=== PATIENT | male | born 1970 | race Caucasian/White ===

== ENCOUNTER 2018-12-04 08:26 | Outpatient (REF) | payer MEDICAID, SELFPAY ==
[2018-12-04 13:51] LABS: HGB 14.8 g/dL (13.5-17.5); Mean Corp. HGB Concentration 34.4 g/dL (32.0-36.0); Mean Corpuscular Hemoglobin 29.1 pg (27.0-33.0); Mean Corpuscular Volume 84.5 fL (80-95); Mean Platelet Volume 10.7 fL (8.0-11.0); Platelet Count 280 x1000/uL (130-400); RBC 5.09 m/cumm (4.50-6.00); RBC Distribution Width 12.8 % (11.8-14.1)
[2018-12-04 14:06] LABS: ALT 37 U/L (12-78); AST 15 U/L (15-37); Albumin 3.4 g/dL (3.4-5.0); Alkaline Phosphatase 100 U/L (46-116); Anion Gap 7.3 mmol/L (3-11); BUN 8 mg/dL (7-18); Bilirubin, Total 0.3 mg/dL (0.2-1.0); CO2 28.7 mmol/L (21.0-32.0); CREATININE 0.97 mg/dL (0.70-1.30); Chloride 105 mmol/L (98-107); Cholesterol 135 mg/dL (50-200); Glucose 92 mg/dL (70-100); HDL Cholesterol 36 mg/dL (40-60); LDL CHOLESTEROL 81 mg/dL (<100); Potassium 4.3 mmol/L (3.5-5.1); Sodium 141 mmol/L (136-145); Total Protein 6.7 g/dL (6.4-8.2); Triglyceride 78 mg/dL (30-150)
== END 2018-12-04 08:46 ==
LOC: NCHCN 08:26
PROVIDERS: PCP Family Medicine; Visit Provider Nurse Practitioner Family
DX: E78.5 Hyperlipidemia, unspecified (principal); I63.9 Cerebral infarction, unspecified; Z00.00 Encounter for general adult medical examination without abnormal findings; F10.11 Alcohol abuse, in remission
CPT/HCPCS: 80053; 80061; 83721; 85027

== ENCOUNTER 2019-12-10 09:59 | Outpatient (REF) | payer MEDICAID, SELFPAY ==
[2019-12-10 14:07] LABS: Anion Gap 9.1 mmol/L (3-11); BUN 14 mg/dL (7-18); CO2 27.9 mmol/L (21.0-32.0); CREATININE 1.01 mg/dL (0.70-1.30); Calcium 9.2 mg/dL (8.5-10.1); Calculated LDL 103 mg/dL (<100); Chloride 102 mmol/L (98-107); Cholesterol 157 mg/dL (<200); Glucose 92 mg/dL (74-106); HDL Cholesterol 38 mg/dL (40-60); Potassium 4.4 mmol/L (3.5-5.1); Sodium 139 mmol/L (136-145); Triglyceride 84 mg/dL (<150)
== END 2019-12-10 10:19 ==
LOC: NCHCN 09:59
PROVIDERS: PCP Family Medicine; Visit Provider Nurse Practitioner Family
DX: E78.5 Hyperlipidemia, unspecified (principal); Z00.00 Encounter for general adult medical examination without abnormal findings
CPT/HCPCS: 80048; 80061

== ENCOUNTER 2022-01-25 19:47 | Outpatient (REF) | payer OTHER, MEDICAID, SELFPAY ==
[2022-01-25 20:38] LABS: BUN 12 mg/dL (7-18); Calcium 9.3 mg/dL (8.5-10.1); Calculated LDL 136 mg/dL (<100); Chloride 104 mmol/L (98-107); Cholesterol 203 mg/dL (<200); Glucose 93 mg/dL (74-106); HDL Cholesterol 47 mg/dL (40-60); Potassium 4.4 mmol/L (3.5-5.1); Sodium 140 mmol/L (136-145); Triglyceride 102 mg/dL (<150)
== END 2022-01-25 19:48 | disposition home or self-care (01) ==
LOC: NCHCN 19:47
PROVIDERS: PCP Family Medicine; Visit Provider Nurse Practitioner Family
DX: I63.9 Cerebral infarction, unspecified (principal); E78.5 Hyperlipidemia, unspecified
CPT/HCPCS: 80048; 80061

== ENCOUNTER → 2022-03-15 08:48 | Outpatient (BNVA) | payer OTHER, MEDICAID, SELFPAY | PROVIDERS: PCP Family Medicine; Referring Provider Family Medicine; Visit Provider Physical Therapy Assistant | DX: K46.9 Unspecified abdominal hernia without obstruction or gangrene (principal); I63.9 Cerebral infarction, unspecified | CPT/HCPCS: 99203 ==

== ENCOUNTER 2022-04-09 02:26 | Outpatient (CLI) | payer OTHER, MEDICAID, SELFPAY ==
[2022-04-09 09:55] LABS: Source Nasal/Nares
[2022-04-09 12:07] LABS: COVID-19 PCR Negative (Negative)
== END 2022-04-09 02:27 | disposition home or self-care (01) ==
LOC: LBO 02:26
PROVIDERS: PCP Family Medicine; Visit Provider Surgery
DX: Z20.822 Contact with and (suspected) exposure to COVID-19 (principal); Z01.818 Encounter for other preprocedural examination
CPT/HCPCS: 87635; U0005

== ENCOUNTER 2022-04-10 07:22 | Day surgery (SDC) | payer OTHER, MEDICAID, SELFPAY ==
[2022-04-10] VITALS (9 sets, daily range): BP systolic 95–150; BP diastolic 68–98; PULSE 73–99; RESP 16–18; TEMP 36.4–36.8; O2SAT 94–98; BMI 24.5
--- NOTE | 2022-04-10 06:32 | ROE_ITS ---
Date of service: 04/10/22 Time of Service: 10:16 Operative Note Operative Note DATE OF PROCEDURE: 04/10/22 PRE-OP DIAGNOSIS: right inguinal hernia POST-OP DIAGNOSIS: same (and small hydrocele) PROCEDURE: Right inguinal hernia repair with mesh SURGEON: Renetta Stephenson FIBERGLASS ROVING WINDER: Meghan Reid ANESTHESIA TYPE: General LMA/ETT and Other (right TAP block) Refer to Anesthesia Record ESTIMATED BLOOD LOSS: 25 PATHOLOGY: none sent COMPLICATIONS: None Patient was transported to: PACU Patient's condition: stable Implants: PerFix Ref- [id number] and [id number] LOT- [id number] and [id number] EXP- and Indications: Patient presents with a several year history of right inguinal hernia that has started to cause him discomfort daily. He must brace this area when coughing secondary to increased discomfort. He wishes to proceed with having this surgic ally repaired. Discussed the nature of the inguinal hernia with the patient. I discussed the surgery in detail and the potential complications related to the surgery to include bleeding, hematoma, scrotal swelling, recurrence, neuorpraxia, injury to the cord structures or mesh infection and the potential complications related to anesthesia. Patient verbalized understanding. All questions were answered to patient satisfaction.? Also reviewed and discussed the lifting post-operatively to include: No lifting more than five (5) pounds for the first week following surgery. For the second week after surgery, don't lift more than ten (10) pounds.? Restrictions and when you can return to work will be discussed and decided at the follow up appointment. No sexual activity for two weeks. Reviewed COVID pre-caution's and pre-procedure testing. Patient is scheduled for COVID test. Instructions of testing location were provided. Patient verbalized understanding. P// Right inguinal hernia repair with mesh. Findings: large direct hernia and small hydrocele Procedure Description: After informed concent was obtained the patient was taken to the operating room and placed in a supine position. Monitors and SCDs were applied and a timeout was done. The patient's name, date of , procedure type, procedure site, allergies to medications, preoperative antibiotic, and DVT prophylaxis were all reviewed. Fire risk was assessed. Next anesthesia did a tap block on the right side under ultrasound guidance. Please see their separate dictation. Once anesthesia was done the abdomen was prepped and draped in a sterile surgical fashion. 0.5% Marcainel was injected into the dermis in the right lower quadrant. An incision was made with a 10 blade in the right lower quadrant. Dissection was done with cautery through the subcutaneous tissues and Nathen's fascia down to the external oblique fascia. The external ring was identified and the external oblique fascia was opened sharply through the external ring. The cut fascia was grasped with hemostats the cord structures were identified and a Whiting drain was placed around them. The ilioinguinal nerve was identified and cut. The cremasteric muscle was dissected away from the cord structures using both cautery and blunt dissection. A large indirect hernia was identified as well as a small direct hernia. A MEd plug was placed into the indirect defect and secured with 3-0 proline. A flat piece of mesh was then attached to the lacunar ligament using a 2-0 Prolene double armed suture. The mesh was secured laterally and medially with a 2-0 Prolene, with a running suture. The tails of the mesh were wrapped around the cord structures effectively cinching down the internal ring. Once the mesh was secured the tissues were irrigated with some normal saline. A small defect was still noted at the medial aspect of the lacunar ligament. A small plug was placed to avoid a recurrance and secured with 2-0 proline. No bleeding was identified. The external oblique fascia was reapproximated using 2-0 Vicryl running suture. The Nathen's fascia was reapproximated using interrupted 3-0 Vicryl. The dermis was reapproximated with a running 4-0 Vicryl. The skin was cleaned and dried and skin affix was applied. The patient was woken up and taken back to recovery in stable condition. There were no immediate complications. Sponge, instrument and needle counts were correct at the end of the case x2.
--- NOTE | 2022-04-10 06:34 | PDOC.DSDIS_ITS ---
Discharge Plan Disposition Patient Disposition: HOME Condition: Good Discharge Details Reason For Visit: right inguinal hernia and small hydrocele Attending Provider: Renetta Stephenson Primary Care Provider: Joaquin Jarrett Home Meds and New Rx's Prescriptions: New oxycodone 5 mg tablet 5 mg PO Q6H PRNQty: 14 0RF Continued omeprazole 40 mg capsule,delayed release(DR/EC) 40 mg PO DAILY atorvastatin 80 mg tablet 80 mg PO QHS albuterol sulfate [ProAir HFA] 90 mcg/actuation HFA aerosol inhaler 2 puff inhalation Q6H PRN aspirin [Aspir-81] 81 MG tablet,delayed release (DR/EC) 81 mg PO DAILY Qty: 30 0RF Discharge Instructions Instructions: Inguinal Hernia Repair (DC) Additional Instructions: Activity at Home after surgery: 1. Make sure you walk outside at least 4 times per day 2. You should be able to climb a flight of stairs 3. No driving while in pain or taking pain medications 4. No strenuous activity or heavy lifting for 4 weeks (open surgery) Diet, Nutrition, & wound healin. Avoid alcohol until after you are recovered from your surgery 2. Make sure to eat plenty of lean protein (meat, fish, eggs, cottage cheese, beans) 3. Eat a variety of fruits and vegetables. Eat plenty of high fiber foods to avoid constipation. 4. Drink plenty of liquids to stay hydrated and avoid constipation Pain Medications: 1. Tylenol 650mg every 6 hours as needed and Ibuprofen 600 mg every 6 hours as needed. You may alternate between the 2 medications every 3 hours 2. If a narcotic has been prescribed take as directed only for breakthro ugh pain For Constipation: 1. Take Milk of Magnesia or MiraLax as needed for constipation Other: 1. You may shower daily. Do not scrub the incisions 2. Do not soak the incisions for 1 week 3. You may alternate ice and heat as needed for pain and swelling Wound Care: 1. Keep the incisions clean and dry Please call our office if you develop: 1. Fevers >101.5 2. Nausea or Vomiting 3. Worsening pain 4. Redness and thick discharge from the wounds If after hours please call the Hospital at and ask to speak to the on-call surgeon Stand Alone Forms: Anesthesia Discharge Inst., [employer].Nerve Block Instructions, Austin Macario ([facility]) Referrals: Renetta Stephenson MD [ [facility] STAFF PHYSICIAN] - 04/23/22 1:00 pm Activity:: as above Remove Dressings/Wound Care:: Do Not Remove Shower/Bathe:: 24 hours Diet:: As Tolerated Discharge Orders Discharge Orders: Discharge Order (Routine); Ordered 04/10/22 Ordered By: Renetta Stephenson
--- NOTE | 2022-04-10 08:03 | W.ANESPRE ---
General Info Date of Service Date Performed: 04/10/22 Height: 5 ft 4.5 in Weight: 65.8 kg Body Mass Index (BMI): 24.5 Surgical Procedure: Operation Date: 04/10/22 10:25 Proposed Procedure Side Surgeon p Herniorrhaphy Inguinal w/Mesh Right Renetta Stephenson MD Meds Allergies and Home Medications Allergies Allergy/AdvReac Type Severity Reaction Status Date / Time No Known Allergies Allergy Verified 04/10/22 07:33 Home Medication Medication Instructions Recorded aspirin 81 mg tablet,delayed 81 mg PO DAILY ##30 06/28/16 release (Aspir-) albuterol sulfate 90 mcg/actuation 2 puff inhalation Q6H PRN 02/28/22 aerosol inhaler (ProAir HFA) atorvastatin 80 mg tablet 80 mg PO QHS 02/28/22 omeprazole 40 mg capsule,delayed 40 mg PO DAILY 02/28/22 release Current Visit Medications: Current Medications Generic Name Dose Route Start Last Admin Trade Name Freq PRN Reason Stop Dose Admin Acetaminophen 1,000 mg 04/10/22 06:00 Acetaminophen 500 Mg Tab PO 04/10/22 23:59 PREOP EDDIE Celecoxib 200 mg 04/10/22 06:00 Celecoxib 200 Mg Cap PO 04/10/22 23:59 PREOP EDDIE Gabapentin 300 mg 04/10/22 06:00 Gabapentin 300 Mg Cap PO 04/10/22 16:00 PREOP EDDIE Ringer's Solution 1,000 mls @ 80 mls/hr 04/10/22 06:00 IV 05/09/22 23:59 INFUSION EDDIE Cefazolin Sodium/Dextrose 2 gm in 50 mls @ 100 mls/hr 04/10/22 06:00 Ancef Duplex IVPB 04/10/22 23:59 PREOP EDDIE Ondansetron HCl 4 mg/ Sodium 52 mls @ 200 mls/hr 04/10/22 06:36 Chloride IVPB Q6H PRN PRN IV Miscellaneous Supplies 1 each 04/10/22 06:00 Iv Access IV 05/09/22 23:59 DIRECTED EDDIE Morphine Sulfate 2 mg 04/10/22 06:36 Morphine 4 Mg/Ml Syr IVP Q1H PRN PRN Oxycodone HCl 5 mg 04/10/22 06:36 Oxycodone 5 Mg Tab PO Q3H PRN PRN Pain Sodium Chloride 0 ml 04/10/22 06:00 Normal Saline Flush 10 Ml Syr IV 05/09/22 23:59 PRN PRN Sodium Chloride 0 ml 04/10/22 06:00 Normal Saline 10 Ml Vial IJ 05/09/22 23:59 DIRECTED PRN Sterile Water 0 ml 04/10/22 06:00 Water,Injection,Sterile 10 Ml Vial IJ 05/09/22 23:59 DIRECTED PRN PFSH Active Problems Active Problems: Problem Status Onset Code Right inguinal hernia K40.90 Dyspnea R06.00 CVA (cerebral vascular accident) I63.9 Dysphagia R13.10 Medical History Medical History Anxiety and depression Ataxia COPD (chronic obstructive pulmonary disease) Per pt. Deviated nasal septum Dysarthria Foreign body in eyeball, left GERD (gastroesophageal reflux disease) History of alcohol abuse stopped drinking November 2016 Hyperlipidemia Neck pain on right side Subclavian arterial stenosis w/ stent Vertigo Surgical History Surgical History Status post craniectomy per pt. states he f/u with PCP CVA 2018 Tobacco Smoking/Tobacco Use Status: Current every day Tobacco Type: cigarettes Alcohol Alcohol Intake: former Substance Use Substance use: Never Substance use type: marijuana Vital Signs and Lab Results Vital Signs Most Recent Vital Signs in EMR: Most Recent Vital Signs Temp Pulse Resp BP Pulse Ox 36.8 C 73 16 150/81 H 98 04/10/22 07:35 04/10/22 07:35 04/10/22 07:35 04/10/22 07:35 04/10/22 07:35 Lab Results Blood Type / Crossmatch: No Data to Display Complete Blood Count: No Data to Display Complete Metabolic Panel: No Data to Display Liver Function Panel: No Data to Display Coagulation Panel: No Data to Display Cardiac Panel: No Data to Display Arterial Blood Gas: No Data to Display Venous Blood Gas: No Data to Display Pancreas Panel: No Data to Display Thyroid Panel: No Data to Display Infectious Disease: Coronavirus (COVID-19)(PCR) Negative (Negative) 04/09/22 08:27 Coronavirus 2019 Source Nasal/Nares 04/09/22 08:27 Blood Cultures: No Data to Display Toxicology Panel: No Data to Display Imaging and Studies Imaging and Studies Study information below may be from another EMR and interpreted by another provider. Please see original notes in EMR for more complete details. Echocardiogram Summary: 05/08/2018: [facility]: EF 63%, valves normal Anesthesia Assessment and Plan Anesthesia History Personal History: No History of Anesthesia Complications Family History: No Family History of Anesthesia Complications Exercise Tolerance Exercise Tolerance: Metabolic Equivalents>4 Pertinent Negatives Pertinent Negatives: No Symptoms of GERD, No Major Cardiovascular Symptoms or Complaints and No Major Pulmonary Symptoms or Complaints Cardiac & Pulmonary Exam Cardiac Exam: Normal S1/S2 Heart Sounds Pulmonary Exam: Clear Bilateral Breath Sounds Implantable Cardiac Device Does patient have a Pacemaker or an ICD?: No Airway Exam Known Difficult Airway: No Mallampati Class: 2 Mouth Opening: Normal (> 3cm) Thyromental Distance: Greater than 3 cm Neck Range of Motion: Full ROM Neck Circumference: Normal Teeth Condition: Generalized Poor Dentition and Loose or Chipped (chipped tooth to left incisor per patient) Tooth Numberin. chipped per patient ASA Classification ASA Score: ASA 2 Emergency Case?: No NPO Status NPO Status: NPO Clears >2 hours, Solids >8 hours Anesthesia Plan Resuscitation Status: Full Code Anesthesia Technique: General Anesthesia Airway Planned: Endotracheal Tube Pain Management: Surgeon and patient request nerve block (TAP) Monitors Used: Standard Monitors Preoperative Comments:: Ordered preoperative Duoneb to be given in [facility]
[2022-04-10] MEDS: Lactated Ringers 1,000 ML 80 ML IV (08:05)
[2022-04-10] MEDS: Celecoxib 200 MG CAP PO (08:06)
[2022-04-10] MEDS: Gabapentin 300 MG CAP PO (08:06)
[2022-04-10] MEDS: Acetaminophen 500 MG TAB 1000 MG PO (08:06)
[2022-04-10] MEDS: Albuterol/Ipratropium 3 ML UPD VIAL UPD (08:46)
--- NOTE | 2022-04-10 09:10 | NUR.NOTE ---
Up draft done. LS remains clear. Nursing Note:
[2022-04-10] MEDS: ceFAZolin 2 GM/50 ML BAG IVPB (10:09)
--- NOTE | 2022-04-10 10:33 | ANES.NERVE_ITS ---
Nerve Block Single Injection Procedure Date and Time Date Performed: 04/10/22 Procedure Start: 10:15 Location Where Procedure Performed Procedure Location: Operating Room Procedure Stop: 10:21 Reason Performed: Postoperative Analgesia Requesting Provider: Renetta Stephenson Timeout Performed Timeout Performed: Yes Monitoring Used ECG, Blood Pressure, SpO2 and See EMR for corresponding vital signs Sterility Sterility: Hand Hygiene, Surgical Cap, Surgical Mask, Sterile Gloves and Chl orhexidine Sedation Given During Procedure Sedation Given (Indicate Dose Given): No Sedation given Patient Mental Status Patient Mental Status: Performed under general anesthesia Nerve Block 1st Nerve Block: Laterality: Right Block Type: TAP Unilateral Needle / Catheter Used: 100mm SonoPlex II Local Anesthetic Bolus (Indicate Dose Given): Injected in 3-5ml increments after negative blood aspiration and Bupivacaine 0.25% Dose:: 30ml Additives (Indicate Dose Given): None Ultrasound: Sterile probe cover and gel used Ultrasound Image Saved?: Yes Nerve Stimulator: Not Used Paresthesia: None Procedure Tolerated: No Complications and Patient tolerated well Procedure Outcome: Successful Performed By: Salomon Dorado
[2022-04-10] MEDS: oxyCODONE 5 MG TAB PO (12:43)
--- NOTE | 2022-04-10 14:54 | W.ANESPOSTOP ---
Postoperative Evaluation Date, Time and Location Date Performed: 04/10/22 Time Performed: 12:40 Patient Location: Day Surgery Unit Vital Signs Most Recent Imported Vital Signs: Most Recent Vital Signs Temp Pulse Resp BP Pulse Ox 36.5 C 81 16 127/87 98 04/10/22 12:34 04/10/22 12:34 04/10/22 12:34 04/10/22 12:34 04/10/22 12:34 Pain Score Most Recent Pain Score: Most Recent Pain Score Pain Level 4 04/10/22 12:34 Assessment Mental Status: Awake (Alert & Oriented to Patient Baseline) Airway and Respiratory Function: Patent airway with normal (patient baseline) respiratory exam Cardiovascular Function: Hemodynamically Stable Hydration Status: Adequately Hydrated Nausea & Vomiting: No Nausea or Vomiting Pain: Pt. Denies Any Pain Peripheral Nerve Block: Patient did not receive a nerve block
== END 2022-04-10 13:39 | disposition home or self-care (01) ==
PROVIDERS: PCP Family Medicine; Visit Provider Surgery
PROC: (CPT 49505; principal; 2022-04-10 10:15)
DX: K40.90 Unilateral inguinal hernia, without obstruction or gangrene, not specified as recurrent (principal); N43.3 Hydrocele, unspecified; K21.9 Gastro-esophageal reflux disease without esophagitis; E78.5 Hyperlipidemia, unspecified; F41.8 Other specified anxiety disorders; J44.9 Chronic obstructive pulmonary disease, unspecified
CPT/HCPCS: 49505; 76942; C1781; J0690; J1100; J1885; J2250; J2405; J2704; J7620

== ENCOUNTER → 2022-04-23 12:37 | Outpatient (BNVA) | payer OTHER, MEDICAID, SELFPAY | PROVIDERS: PCP Family Medicine; Referring Provider Family Medicine; Visit Provider Surgery | DX: Z48.817 Encounter for surgical aftercare following surgery on the skin and subcutaneous tissue (principal) ==

== ENCOUNTER → 2022-07-09 08:43 | Outpatient (BNVA) | payer OTHER, MEDICAID, SELFPAY | PROVIDERS: PCP Family Medicine; Referring Provider Family Medicine; Visit Provider Urology | DX: K40.90 Unilateral inguinal hernia, without obstruction or gangrene, not specified as recurrent (principal); Z98.890 Other specified postprocedural states; Z87.19 Personal history of other diseases of the digestive system | CPT/HCPCS: 99215 ==

== ENCOUNTER → 2022-07-23 13:58 | Outpatient (BNVA) | payer OTHER, MEDICAID, SELFPAY | PROVIDERS: PCP Family Medicine; Referring Provider Family Medicine; Visit Provider Urology | DX: N50.89 Other specified disorders of the male genital organs (principal) | CPT/HCPCS: 99213 ==

== ENCOUNTER → 2022-10-21 13:46 | Outpatient (BNVA) | payer OTHER, MEDICAID, SELFPAY | PROVIDERS: PCP Family Medicine; Referring Provider Nurse Practitioner Family; Visit Provider Psychiatry & Neurology Neurology | DX: I69.365 Other paralytic syndrome following cerebral infarction, bilateral (principal); I69.393 Ataxia following cerebral infarction; Z79.82 Long term (current) use of aspirin; Z79.02 Long term (current) use of antithrombotics/antiplatelets | CPT/HCPCS: 99214 ==

== ENCOUNTER 2023-01-16 11:33 | Outpatient (REF) | payer OTHER, MEDICAID, SELFPAY ==
[2023-01-16 16:26] LABS: HCT 45.7 % (40.0-50.0); HGB 15.5 g/dL (13.5-17.5); MCH 28.4 pg (27.0-33.0); MCHC 33.9 % (32.0-36.0); MCV 84 fL (80-95); MPV 10.5 fL (8.0-11.0); Platelet Count 345 10^3/uL (130-400); RBC 5.45 10^6/uL (4.36-5.78); RDW 12.9 % (11.8-14.1); RDW-SD 39.3 fL
[2023-01-16 16:36] LABS: ALT 33 U/L (16-63); AST 18 U/L (15-37); Alkaline Phosphatase 115 U/L (46-116); Anion Gap 10.2 mmol/L (3-11); BUN 10 mg/dL (7-18); Bilirubin, Total 0.3 mg/dL (0.2-1.0); CO2 25.8 mmol/L (21.0-32.0); Calcium 9.5 mg/dL (8.5-10.1); Calculated LDL 96 mg/dL (<100); Chloride 103 mmol/L (98-107); Cholesterol 173 mg/dL (<200); Estimated GFR 90.56 (mL/min/1.73m2); Glucose 93 mg/dL (74-106); HDL Cholesterol 47 mg/dL (40-60); Potassium 4.3 mmol/L (3.5-5.1); Sodium 139 mmol/L (136-145); Triglyceride 150 mg/dL (<150)
== END 2023-01-16 11:34 | disposition home or self-care (01) ==
LOC: NCHCN 11:33
PROVIDERS: PCP Family Medicine; Visit Provider Nurse Practitioner Family
DX: E78.5 Hyperlipidemia, unspecified (principal); F10.11 Alcohol abuse, in remission
CPT/HCPCS: 80053; 80061; 85027

== ENCOUNTER 2024-05-03 16:41 | Outpatient (REF) | payer OTHER, MEDICAID, SELFPAY ==
[2024-05-03 19:35] LABS: ALT 23 U/L (16-63); AST 20 U/L (15-37); Albumin 3.7 g/dL (3.4-5.0); Alkaline Phosphatase 91 U/L (46-116); Anion Gap 8.8 mmol/L (3-11); BUN 9 mg/dL (7-18); Bilirubin, Total 0.22 mg/dL (0.2-1.0); CO2 28.2 mmol/L (21.0-32.0); Calcium 9.4 mg/dL (8.5-10.1); Calculated LDL 98 mg/dL (<100); Chloride 104 mmol/L (98-107); Cholesterol 164 mg/dL (<200); Glucose 160 mg/dL (74-106); HDL Cholesterol 48 mg/dL (40-60); Sodium 141 mmol/L (136-145); Total Protein 7.4 g/dL (6.4-8.2); Triglyceride 91 mg/dL (<150)
== END 2024-05-03 16:42 | disposition home or self-care (01) ==
LOC: NCHCN 16:41
PROVIDERS: PCP Family Medicine; Visit Provider Nurse Practitioner Family
DX: E78.5 Hyperlipidemia, unspecified (principal); R73.09 Other abnormal glucose; Z00.00 Encounter for general adult medical examination without abnormal findings
CPT/HCPCS: 80053; 80061

== ENCOUNTER 2025-06-21 12:48 | Outpatient (CLI) | payer MEDICARE, MEDICAID, SELFPAY ==
--- NOTE | 2025-06-21 | DI.US_ITS ---
Exam(s) US HERNIA EXAM: US HERNIA CLINICAL HISTORY: LT INGUINAL HERNIA,K40.90. TECHNIQUE: Ultrasound was performed using standard protocol. COMPARISON: CT CTA BRAIN AND NECK from 05/07/2018 US US OR ANESTHESIA from 04/10/2022 FINDINGS: Sonographic assessment utilizing grayscale and color Doppler imaging was performed and targeted to the area of clinical concern. In the left inguinal region, there is a bowel containing hernia manifesting with Valsalva which is measured at 4.2 x 2.4 x 4.1 cm. The right groin area was also scanned which also shows a bowel containing hernia which was measured at 2.9 x 3.3 x 1.7 cm, also manifesting with Valsalva. IMPRESSION: Bilateral bowel containing hernias are demonstrated occurring with Valsalva maneuver. DATA REPOSITORY:
== END 2025-06-21 13:08 ==
LOC: DI 12:48
PROVIDERS: PCP Family Medicine; Visit Provider Nurse Practitioner Family
DX: K40.90 Unilateral inguinal hernia, without obstruction or gangrene, not specified as recurrent (principal)
CPT/HCPCS: 76857

== ENCOUNTER → 2025-09-12 10:18 | Outpatient (BNVA) | payer MEDICARE, MEDICAID, SELFPAY | PROVIDERS: PCP Family Medicine; Referring Provider Family Medicine; Visit Provider Surgery | DX: K40.21 Bilateral inguinal hernia, without obstruction or gangrene, recurrent (principal) | CPT/HCPCS: 99214 ==

== ENCOUNTER 2025-09-27 07:17 | Day surgery (SDC) | payer MEDICARE, MEDICAID, SELFPAY ==
--- NOTE | 2025-09-26 15:13 | PDOC.DSDIS_ITS ---
Date of service: 09/27/25 Discharge Plan Disposition Patient Disposition: Home Condition: Good Discharge Details Reason For Visit: Bilateral inguinal hernia repair Attending Provider: Fermin Beckham Primary Care Provider: Joaquin Jarrett Home Meds and New Rx's Prescriptions: New tramadol 50 mg tablet 50 mg PO Q8H PRNQty: 12 0RF Rx Instructions: Take 1 tablet by mouth up to every 8 hours if needed for severe pain Continued ibuprofen 800 mg tablet 800 mg PO Q8H omeprazole 40 mg capsule,delayed release(DR/EC) 40 mg PO DAILY atorvastatin 80 mg tablet 80 mg PO QHS albuterol sulfate [ProAir HFA] 90 mcg/actuation HFA aerosol inhaler 2 puff inhalation Q6H PRN fluticasone furoate-vilanterol [Breo Ellipta] 100-25 mcg/dose blister with device 1 inh inhalation DAILY aspirin [Aspir-81] 81 MG tablet,delayed release (DR/EC) 81 mg PO DAILY Qty: 30 0RF bupropion HCl 100 mg tablet 100 mg PO DAILY Patient Comments: TAKE ONE TABLET BY MOUTH DAILY AT 9AM DIRECTED FOR 90 DAYS, FOR MOOD Discharge Instructions Instructions: Groin Hernia Repair, Laparoscopic Surgery Additional Instructions: Branden, was good to see you today, and I hope you have a smooth and uneventful recovery as you transition home. We were able to find, and repair the hernia on your right side, as well as your left side today just as we talked about beforehand. This was all done with the camera through the bellybutton. Although the incisions look fairly small on your belly, there is a fair amount of dissection that occurs underneath, so expect to have some pain over the next few days. Hopefully, the nerve blocks that we did beforehand will help provide some relief. I also placed a prescription for a medication called tramadol if you need that in addition to Tylenol and ibuprofen. You should be up and moving around a little bit each day. Be careful with lifting, trying to restrict it to about 5 to 10 pounds until we check up on you in the office. Using a pillow, or holding some pressure across your groins when you cough or sneeze will also be more comforting. Ice packs are fine to use as well. If you need anything, or have any questions, please do not hesitate to call at any time. Otherwise, I look forward to seeing you in the office on October 10 at 10:30 AM 1. Resume all of your medications. 2. Use ice packs over the incisions, or over your groins to help with postoperative pain and swelling. 3. Alternate [id number] Tylenol and ibuprofen every 6 hours for the first 2 days. Then use them as needed. Use a prescription for tramadol if you need it for more severe pain. 4. Leave bandages in place for 24 hours, then remove. 5. Shower with warm soapy water. Pat dry. Feel free to replace Band-Aids over the incisions if you find that more comfortable. Alternatively, these can be left open to the air. 6. No soaking or tub baths until I see you in the office. 7. No heavy lifting until I see you in the office. 8. Call the office (or go directly to the emergency room after hours) if you notice any of the following: Develop chills (warm to touch), or if you have a thermometer and your temperature is above 101 Difficulty breathing or difficultly swallowing Persistent vomiting Any bleeding – exceeding one tablespoon 9. Call your physician if the site where your intravenous was started becomes red, swollen, painful, and warm to touch. Stand Alone Forms: Anesthesia Discharge Inst., Austin Macario ([facility]), Portal Information Referrals: Fermin Beckham MD [ [facility] STAFF PHYSICIAN, Surgery] - 10/10/25 10:00 am Activity:: no heavy lifting Remove Dressings/Wound Care:: 24 hours Shower/Bathe:: 24 hours Diet:: As Tolerated DS: Diagnosis Discharge Diagnosis (1) Bilateral recurrent inguinal hernia: Status: Acute Asessment and Plan: Postoperative follow-up
--- NOTE | 2025-09-26 15:15 | W.PM.OP ---
Operative Note Operative Note PRE-OP DIAGNOSIS: Recurrent right sided inguinal hernia, left-sided inguinal hernia POST-OP DIAGNOSIS: other (Right sided direct inguinal hernia, left-sided combined direct and indirect inguinal hernia) PROCEDURE: Bilateral laparoscopic inguinal hernia repair with permanent mesh SURGEON: Fermin Beckham AIR [employer]LLUTION COMPLIANCE INSPECTOR: Meghan Reid ANESTHESIA TYPE: General LMA/ETT and Other (Bilateral tap blocks) Refer to Anesthesia Record ESTIMATED BLOOD LOSS: 50 PATHOLOGY: none sent COMPLICATIONS: None Patient was transported to: PACU Patient's condition: stable Implants: Bard 3D max mid anatomic mesh right sided, Bard 3D max mid anatomic mesh left sided Indications: Branden is a 55-year-old male with a recurrent right sided inguinal hernia, and a new symptomatic left-sided inguinal hernia Findings: Right sided direct inguinal hernia, left sided combined direct and indirect inguinal hernias Procedure Description: I met with Branden in the preoperative area, we reviewed the plan for laparoscopic bilateral inguinal hernia repair with permanent mesh today. He had the chance to ask any other questions. He affirmed his previously signed informed consent. Next, we moved back to the OR. He was assisted onto the OR table, and general endotracheal anesthesia was induced. The anesthesia service then provided bilateral ultrasound-guided transversus abdominis blocks. Both arms were tucked at his sides. Great care was taken to ensure that they were appropriately positioned, padded, and situated prior to surgery. Next, the anterior abdominal wall was prepped and draped. I began with an incision in the underside of the umbilicus. I dissected down to the fascia which was grasped with Geo clamps, and elevated up into the operative field. This was opened sharply, and the peritoneal cavity was entered under direct vision. 0 Vicryl sutures were used to affix the 12 mm Roblero port in the umbilical position. The peritoneum was then insufflated. A 5 mm 30 degree scope was introduced. I then placed a 5 mm port in the right mid abdomen, and 1 on the left side as well. These were done under the direct vision of the laparoscope. Branden was then placed in Trendelenburg positioning. I started on the right side. I could see a previously placed mesh in the preperitoneal space just above and lateral to the internal ring. This appeared well adherent to the peritoneal surface. Medial to this was a fat-containing direct inguinal hernia. Next, I incised the peritoneum above this, and carefully dissected down the preperitoneal space. Soft tissues were swept superficially. Some preperitoneal fat was reduced from the direct inguinal hernia, as the dissection came down onto the shelving edge of the inguinal ligament. I carefully dissected medially well across the midline on the pubic tubercle. I then turned my attention to the lateral dissection. As previously mentioned, there is a mesh plug densely adherent to the cord structures obliterating the internal ring. Dissection of this was impossible because of the adhesions. Furthermore, the internal ring defect was well obliterated. Therefore, I just continued the dissection laterally developing a preperitoneal pocket. I then turned my attention back medially, and dissected down towards the femoral triangle. Great care was taken to avoid any injury to the femoral vein. Again, there were some adhesions on the lateral aspect of this probably from insertion of the mesh plug. At this point, it was clear that it was really the direct inguinal hernia site that was causing the symptoms on the right side. Therefore, I selected a Bard 3D max mid anatomic mesh for the right side. The lateral aspect of this was carefully tailored to accommodate the previous hernia plug. This was delivered down into the peritoneal cavity, and advanced into the preperitoneal space with excellent overlap of the iliopectineal triangle. The mesh was affixed to the pubic tubercle with a 3-0 Vicryl suture. Similarly, interrupted sutures were used to affix small portion of this anteriorly, staying well away from the triangle of pain, and another suture was also used more laterally. Again, taking into consideration the overlying nerves. There was excellent overlap of all of the potential hernia defect sites, and the peritoneum was then reapproximated over the mesh with a running 3-0 V-Loc suture. I then turned my attention to the left side. In a manner mirroring the right side, I incised the peritoneum, and carefully dissected it away from the preperitoneal space. I took this dissection down onto the cord structures, taking great care to spare any of the vasculature here. As I developed a plane lateral to the cord structures, was clear that there was a fat-containing indirect inguinal hernia. I carefully reduced all of this fat from the inguinal canal. I then developed the pocket in the preperitoneal space lateral to accommodate a mesh. Once all of this dissection was complete, I worked along the medial side of the cord structures down towards the femoral artery and vein. I then continued the dissection medially developing the plane along the inguinal ligament towards the pubic tubercle. Again this was taken across the midline. There was a large fat-containing direct inguinal hernia on this side. All of the fat was reduced from the defect. With the preperitoneal flap well-developed, in the bladder well posterior, I matured the pocket for implantation of a left sided mesh. On the left, I used a Bard 3D max mid anatomic mesh tailored for the left side. This was advanced down into the peritoneal cavity, and inserted over the cord structures and femoral vessels. The medial aspect was affixed in place with a 3-0 Vicryl suture. Another tacking suture was used to hold it in place laterally. Again, there was excellent overlap obliterating all of the iliopectineal orifices. The peritoneum was then reapproximated over the mesh, again with a 3-0 V-Loc suture. The 5 mm ports were then removed. These were hemostatic. The 12 mm port was removed, and another 0 Vicryl suture was placed in a [id number] fashion to reapproximate the fascia. The skin and subcutaneous tissues were irrigated. The skin was closed with absorbable subcuticular stitches. Bandages were applied, and Branden was awoken from the anesthetic and transferred to the recovery unit. Date of Procedure: 09/27/25
[2025-09-27] VITALS (19 sets, daily range): BP systolic 83–109; BP diastolic 65–84; PULSE 70–94; RESP 5–20; TEMP 36–37.1; O2SAT 92–100; BMI 23.5
[2025-09-27] MEDS: Gabapentin 300 MG CAP 600 MG PO (07:53)
[2025-09-27] MEDS: Acetaminophen 500 MG TAB 1000 MG PO (07:54)
[2025-09-27] MEDS: Lactated Ringers 1,000 ML 80 ML IV (08:02)
--- NOTE | 2025-09-27 08:10 | W.ANESPRE ---
General Info Date of Service Date Performed: 09/27/25 Height: 5 ft 4 in Weight: 62.1 kg Body Mass Index (BMI): 23.5 Surgical Procedure: Operation Date: 09/27/25 08:25 Proposed Procedure Side Surgeon p Hernia Inguinal Laparoscopic Bilateral Fermin Beckham MD Actual Procedure Side Surgeon p Hernia Inguinal Laparoscopic Bilateral Fermin Beckham MD Pre-Op Diagnosis Post-Op Diagnosis Bilateral recurrent inguinal hernia Meds Allergies and Home Medications Allergies Allergy/AdvReac Type Severity Reaction Status Date / Time fluoxetine AdvReac Mild Skin Rash Verified 09/27/25 07:42 Home Medication Medication Instructions Recorded aspirin 81 mg tablet,delayed 81 mg PO DAILY ##30 06/28/16 release (Aspir-) albuterol sulfate 90 mcg/actuation 2 puff inhalation Q6H PRN 02/28/22 aerosol inhaler (ProAir HFA) atorvastatin 80 mg tablet 80 mg PO QHS 02/28/22 omeprazole 40 mg capsule,delayed 40 mg PO DAILY 02/28/22 release fluticasone furoate 100 1 inh inhalation DAILY 09/06/25 mcg-vilanterol 25 mcg/dose inhalation powder (Breo Ellipta) ibuprofen 800 mg tablet 800 mg PO Q8H 09/12/25 bupropion HCl 100 mg tablet 100 mg PO DAILY 09/23/25 Current Visit Medications: Current Medications Generic Name Dose Route Start Last Admin Trade Name Martina PRN Reason Stop Dose Admin Acetaminophen 1,000 mg 09/27/25 06:00 09/27/25 07:54 Acetaminophen 500 Mg Tab PO 09/27/25 23:59 1,000 mg PREOP EDDIE Administration Droperidol 0.625 mg 09/27/25 07:06 Droperidol 5 Mg/2 Ml Vial IVP 10/27/25 07:05 DIRECTED PRN Ephedrine Sulfate 0 mg 09/27/25 07:06 Ephedrine 25 Mg/5 Ml Syringe IVP 10/27/25 07:05 DIRECTED PRN Fentanyl 0 mcg 09/27/25 07:06 Fentanyl 100 Mcg/2 Ml Vial IVP 10/27/25 07:05 DIRECTED PRN Gabapentin 600 mg 09/27/25 06:00 09/27/25 07:53 Gabapentin 300 Mg Cap PO 09/27/25 23:59 600 mg PREOP EDDIE Administration Hydromorphone HCl 0.2 mg 09/26/25 15:15 Hydromorphone 2 Mg/Ml Syr IVP 10/26/25 15:14 Q1H PRN PRN Hydromorphone HCl 0 mg 09/27/25 07:06 Hydromorphone 2 Mg/Ml Syr IVP 10/27/25 07:05 DIRECTED PRN Ringer's Solution 1,000 mls @ 80 mls/hr 09/27/25 06:00 09/27/25 08:02 IV 09/27/25 23:59 80 mls/hr INFUSION EDDIE Administration Cefazolin Sodium/Dextrose 2 gm in 50 mls @ 100 mls/hr 09/27/25 06:00 Ancef Duplex IVPB 09/27/25 23:59 PREOP EDDIE IV Miscellaneous Supplies 1 each 09/27/25 06:00 Iv Access IV 09/27/25 23:59 DIRECTED EDDIE Naloxone HCl 0 mg 09/27/25 07:06 Naloxone 0.4 Mg/Ml Vial IVP 10/27/25 07:05 PRN PRN Sodium Chloride 0 ml 09/27/25 06:00 Normal Saline Flush 10 Ml Syr IV 09/27/25 23:59 PRN PRN Sodium Chloride 0 ml 09/27/25 06:00 Normal Saline 10 Ml Vial IJ 09/27/25 23:59 DIRECTED PRN Sterile Water 0 ml 09/27/25 06:00 Water,Injection,Sterile 10 Ml Vial IJ 09/27/25 23:59 DIRECTED PRN Tramadol HCl 50 mg 09/26/25 15:15 Tramadol 50 Mg Tab PO 10/26/25 15:14 Q6H PRN PRN Pain PFSH Active Problems Active Problems: Problem Status Onset Code Bilateral recurrent inguinal hernia Acute K40.21 Gait abnormality Acute R26.9 Ataxia Acute R27.0 Cerebellar stroke Acute I63.9 Left inguinal hernia Acute K40.90 Right inguinal hernia Acute K40.90 Dyspnea Acute R06.00 CVA (cerebral vascular accident) Chronic I63.9 Dysphagia Acute R13.10 Medical History Medical History Anxiety and depression COPD (chronic obstructive pulmonary disease) Per pt. Deviated nasal septum Dysarthria Foreign body in eyeball, left GERD (gastroesophageal reflux disease) History of alcohol abuse stopped drinking November 2016 Hyperlipidemia Nasal obstruction Neck pain on right side Subclavian arterial stenosis w/ stent Vertigo Surgical History Surgical History S/P inguinal hernia repair using synthetic patch (~04/10/22) and right hydrocelectomy Status post craniectomy per pt. states he f/u with PCP CVA 2018 Tobacco Smoking/Tobacco Use Status: Former Tobacco Use Passive smoking exposure: Yes Alcohol Alcohol Intake: former Substance Use Substance use: Daily Substance use type: marijuana Details: inhaled and edible. Last use was this morning. Vital Signs and Lab Results Vital Signs Most Recent Vital Signs in EMR: Most Recent Vital Signs Temp Pulse Resp BP Pulse Ox 36.4 C L 73 18 103/84 100 09/27/25 07:38 09/27/25 07:38 09/27/25 07:38 09/27/25 07:38 09/27/25 07:38 Imaging and Studies Imaging and Studies Study information below may be from another EMR and interpreted by another provider. Please see original notes in EMR for more complete details. Echocardiogram Summary: 05/08/2018: [facility] [place]: EF 63%, valves normal Anesthesia Assessment and Plan Anesthesia History Personal History: No History of Anesthesia Complications Family History: No Family History of Anesthesia Complications Exercise Tolerance Exercise Tolerance: Metabolic Equivalents>4 Pertinent Negatives Pertinent Negatives: No Symptoms of GERD (Rx) Cardiac & Pulmonary Exam Cardiac Exam: Normal S1/S2 Heart Sounds Pulmonary Exam: Clear Bilateral Breath Sounds Cardiac and Pulmonary Comment:: Smoker, THC Implantable Cardiac Device Does patient have a Pacemaker or an ICD?: No Airway Exam Known Difficult Airway: No Mallampati Class: 2 Mouth Opening: Normal (> 3cm) Thyromental Distance: Greater than 3 cm Neck Range of Motion: Full ROM Neck Circumference: Normal Teeth Condition: Generalized Poor Dentition and Loose or Chipped (chipped tooth to left incisor per patient) ASA Classification ASA Score: ASA 2 Emergency Case?: No NPO Status NPO Status: NPO Clears >2 hours, Solids >8 hours Anesthesia Plan Resuscitation Status: Full Code Anesthesia Technique: General Anesthesia Airway Planned: Endotracheal Tube Monitors Used: Standard Monitors and SedLine
[2025-09-27] MEDS: ceFAZolin 2 GM/50 ML BAG IVPB (08:32)
[2025-09-27] MEDS: Bupivacaine 0.25% Pres-Free 30 ML VIAL (09:13)
--- NOTE | 2025-09-27 09:25 | W.ANESNERVE ---
Nerve Block Single Injection Procedure Date and Time Date Performed: 09/27/25 Procedure Start: 08:37 Location Where Procedure Performed Procedure Location: Operating Room Procedure Stop: 08:51 Reason Performed: Postoperative Analgesia Requesting Provider: Fermin Beckham Timeout Performed Timeout Performed: Yes Monitoring Used ECG, Blood Pressure, SpO2, ETCO2 and See EMR for corresponding vital signs Sterility Sterility: Hand Hygiene, Surgical Cap, Surgical Mask, Sterile Gloves, Eye Protection and Chlorhexidine Sedation Given During Procedure Sedation Given (Indicate Dose Given): No Sedation given Patient Mental Status Patient Mental Status: Performed under general anesthesia (GETA) Nerve Block 1st Nerve Block: Laterality: Right Block Type: TAP Bilateral Ultrasound Image Saved?: Yes Needle / Catheter Used: 100mm SonoPlex II Local Anesthetic Bolus (Indicate Dose Given): Exparel Dose:: 10cc/1.33% and Bupivacaine 0.25% with Epinephrine (1:200,000) Dose:: 15cc/37.5mg Additives (Indicate Dose Given): None Ultrasound: Sterile probe cover and gel used Nerve Stimulator: Not Used Paresthesia: None Procedure Tolerated: No Complications and Patient tolerated well Procedure Outcome: Successful Performed By: Hiram Hightower 2nd Nerve Block: Laterality: Left Block Type: TAP Bilateral Ultrasound Image Saved?: Yes Needle / Catheter Used: 100mm SonoPlex II Local Anesthetic Bolus (Indicate Dose Given): Exparel Dose:: 10cc/1.33% and Bupivacaine 0.25% with Epinephrine (1:200,000) Dose:: 15cc/37.5mg Additives (Indicate Dose Given): None Ultrasound: Sterile probe cover and gel used Nerve Stimulator: Not Used Paresthesia: None Procedure Tolerated: No Complications and Patient tolerated well Procedure Outcome: Successful Performed By: Hiram Hightower
[2025-09-27] MEDS: traMADol 50 MG TAB PO (13:45)
--- NOTE | 2025-09-27 14:24 | W.ANESPOSTOP ---
Postoperative Evaluation Date, Time and Location Date Performed: 09/27/25 Time Performed: 14:24 Patient Location: Day Surgery Unit Vital Signs Most Recent Imported Vital Signs: Most Recent Vital Signs Temp Pulse Resp BP Pulse Ox 36.1 C L 70 16 105/77 92 09/27/25 13:38 09/27/25 13:38 09/27/25 13:38 09/27/25 13:38 09/27/25 13:38 Pain Score Most Recent Pain Score: Most Recent Pain Score Pain Level 4 09/27/25 13:38 Assessment Mental Status: Awake (Alert & Oriented to Patient Baseline) Airway and Respiratory Function: Patent airway with normal (patient baseline) respiratory exam Cardiovascular Function: Hemodynamically Stable Hydration Status: Adequately Hydrated Nausea & Vomiting: No Nausea or Vomiting Pain: Pt. Denies Any Pain Peripheral Nerve Block: Regional nerve block not resolved at time of post operative discharge
== END 2025-09-27 14:35 | disposition home or self-care (01) ==
LOC: SUR 07:22
PROVIDERS: PCP Family Medicine; Visit Provider Surgery
PROC: (CPT 49650; principal; 2025-09-27 08:15)
DX: K40.91 Unilateral inguinal hernia, without obstruction or gangrene, recurrent (principal); K40.90 Unilateral inguinal hernia, without obstruction or gangrene, not specified as recurrent
CPT/HCPCS: 49650; 49651; 64488; C1781; J0665; J0666; J0690; J1100; J1171; J1885; J2003; J2371; J2405; J2704; J3010

== ENCOUNTER → 2025-10-10 10:31 | Outpatient (BNVA) | payer MEDICARE, MEDICAID, SELFPAY | PROVIDERS: PCP Family Medicine; Referring Provider Family Medicine; Visit Provider Surgery | DX: Z51.89 Encounter for other specified aftercare (principal); K40.21 Bilateral inguinal hernia, without obstruction or gangrene, recurrent | CPT/HCPCS: 99024 ==